=== PATIENT | male | born 1985 | race Two or more races ===

== ENCOUNTER 2023-04-27 15:17 | Emergency (ER) | payer BC ==
[~2023-04-27] VITALS: Ht 172.7 cm; Wt 82.6 kg
[2023-04-27] MEDS ORDERED: CLON1TAB12 PO (16:41)
[2023-04-27] MEDS ORDERED: PREG300C PO (16:41)
[2023-04-27] MEDS ORDERED: METF-442 PO (16:41)
[2023-04-27] MEDS ORDERED: LAMO1TAB PO (16:41)
[2023-04-27] MEDS ORDERED: PROP20TA7 PO (16:41)
[2023-04-27 18:12] LABS: BASOPHILS # (AUTO) 0.1 K/UL (0.0-0.2); BASOPHILS % (AUTO) 0.8 % (0.0-2.0); EOSINOPHILS # (AUTO) 0.2 K/uL (0.0-0.7); EOSINOPHILS % (AUTO) 2.4 % (0.0-7.0); HEMATOCRIT 41.6 % (36.7-47.1); HEMOGLOBIN 13.9 g/dL (12.5-16.3); LYMPHOCYTES # (AUTO) 3.2 K/uL (0.8-4.8); LYMPHOCYTES % (AUTO) 33.3 % (20.5-51.5); MEAN CORPUSCULAR HEMOGLOBIN 28.7 uug (23.8-33.4); MEAN CORPUSCULAR HGB CONC 34 g/dL (32.5-36.3); MEAN CORPUSCULAR VOLUME 85.7 fL (73.0-96.2); MONOCYTES # (AUTO) 0.7 K/uL (0.1-1.30); NEUTROPHILS # (AUTO) 5.4 K/uL (1.8-8.9); NEUTROPHILS % (AUTO) 56.5 % (38.5-71.5); PLATELET COUNT (AUTO) 326 K/uL (152-348); RED BLOOD CELL COUNT(AUTO) 4.85 MIL/uL (4.06-5.63); RED CELL DISTRIBUTION WIDTH 14.4 % (12.1-16.2); WHITE BLOOD COUNT (AUTO) 9.5 K/uL (3.6-10.2)
[2023-04-27 18:20] LABS: DIFFERENTIAL COMMENT 1
[2023-04-27 18:26] LABS: CALCIUM 8.7 mg/dL (8.5-10.1); CARBON DIOXIDE 24 mmol/L (21-32); CHLORIDE 99 mmol/L (98-107); GLUCOSE 134 mg/dL (74-106); POTASSIUM 4.1 mmol/L (3.5-5.1); SODIUM SERUM 134 mmol/L (136-145); UREA NITROGEN, BLOOD 11 mg/dL (7-18)
[2023-04-27 18:42] LABS: ALANINE AMINOTRANSFERASE 109 U/L (16-63); ALBUMIN 4.1 g/dL (3.4-5.0); ALKALINE PHOSPHATASE 90 U/L (50-136); ASPARTATE AMINOTRANSFERASE 36 U/L (15-37); BILIRUBIN,DIRECT 0.1 mg/dL (0.0-0.2); BILIRUBIN,TOTAL 0.3 mg/dL (0.2-1.0); NT-PRO BNP 38 pg/mL (0-125); TOTAL PROTEIN, SERUM 8.6 g/dL (6.4-8.2)
[2023-04-27 19:36] VITALS: BP 119/69; TEMP 97.8; O2SAT 99
== END 2023-04-27 19:38 | disposition home or self-care (01) ==
LOC: ER 15:22
DX: I16.9 Hypertensive crisis, unspecified (principal); G40.909 Epilepsy, unspecified, not intractable, without status epilepticus; E11.9 Type 2 diabetes mellitus without complications; Z79.899 Other long term (current) drug therapy; Z88.1 Allergy status to other antibiotic agents
CPT/HCPCS: 36415; 71045; 84484; 85025; 85730; 93005; A4606; A4663